=== PATIENT | female | born 2000 | race African-American/Black ===

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

== ENCOUNTER 2020-04-24 13:51 | Emergency (ER) | payer OTHER ==
[2020-04-24 14:09] VITALS: BP 130/99
--- NOTE | 2020-04-24 14:35 | ER Document Report ---
ED Medical Screen (RME) - General Chief Complaint: Vaginal Itching Stated Complaint: VAGINAL SORES Time Seen by Provider: 04/24/20 14:25 Primary Care Provider: DARRICK MARTINEZ MD [Primary Care Provider] - Follow up as needed TRAVEL OUTSIDE OF THE [place] IN LAST 30 DAYS: No - HPI Notes: 04/24/20 14:32 20-year-old female presents emergency room for complaints of pain in her vaginal area, she thinks that she is having a flareup of her genital herpes that she was diagnosed with back in June 2020. Patient's last menstrual cycle was March 19, states she is offered echo shot, states it may take a while for her cycle to normalize, has not taken a test, is sexually active. States she would like to be evaluated for other STIs. Denies any pelvic pain, vaginal discharge, vaginal bleeding. States most of her genital lesions have been the outside of her vagina. Denies any fevers chills, nausea vomiting or diarrhea. I have greeted and performed a rapid initial assessment of this patient. A comprehensive ED assessment and evaluation of the patient, analysis of test results and completion of the medical decision making process will be conducted by additional ED providers. PHYSICAL EXAMINATION: CV: s1, s2 regular LUNGS: No respiratory distress Unable to do pelvic examination in the triage area. Patient does need a bed for a pelvic exam which requires a patient room - Related Data Allergies/Adverse Reactions: No Known Allergies Allergy (Verified 04/24/20 14:20) Home Medications: acyclorvir Past Medical History - Social History Chew tobacco use (# tins/day): No Frequency of alcohol use: None Drug Abuse: None Family history: Reviewed & Not Pertinent - Past Medical History Cardiac Medical History: Denies: Hx Heart Attack, Hx Hypertension Pulmonary Medical History: Denies: Hx Asthma Neurological Medical History: Denies: Hx Cerebrovascular Accident, Hx Seizures Renal/ Medical History: Denies: Hx Peritoneal Dialysis GI Medical History: Denies: Hx Hepatitis, Hx Hiatal Hernia, Hx Ulcer Infectious Medical History: Denies: Hx Hepatitis Past Surgical History: Reports: Hx Breast Surgery - biopsy. Denies: Hx Mastectomy, Hx Open Heart Surgery, Hx Pacemaker - Immunizations Immunizations up to date: Yes Hx Diphtheria, Pertussis, Tetanus Vaccination: Yes Physical Exam - Vital signs Vitals: Temp Pulse Resp BP Pulse Ox 99.1 F 83 20 130/99 H 100 04/24/20 14:07 04/24/20 14:07 04/24/20 14:07 04/24/20 14:07 04/24/20 14:07 Course - Vital Signs Vital signs: Temp Pulse Resp BP Pulse Ox 99.1 F 83 20 130/99 H 100 04/24/20 14:20 04/24/20 14:07 04/24/20 14:07 04/24/20 14:07 04/24/20 14:07 Doctor's Discharge - Discharge Referrals: DARRICK MARTINEZ MD [Primary Care Provider] - Follow up as needed
[2020-04-24 15:15] LABS: APPEARANCE,URINE SLIGHTLY-CLOUDY; BILIRUBIN,URINE NEGATIVE (NEGATIVE); COLOR,URINE YELLOW; GLUCOSE, URINE NEGATIVE (NEGATIVE); KETONES,URINE NEGATIVE (NEGATIVE); LEUKOCYTE ESTERASE,URINE TRACE (NEGATIVE); NITRITE,URINE NEGATIVE (NEGATIVE); PROTEIN,URINE NEGATIVE (NEGATIVE); URINE SPECIFIC GRAVITY 1.019; UROBILINOGEN,URINE NEGATIVE mg/dL (<2.0)
[2020-04-24] MEDS ORDERED: CEFTRIAXONE INJ 250 MG VIAL IM ONE (20:11)
[2020-04-24] MEDS ORDERED: VALACYCLOVIR HCL 500 MG TABLET PO ONE (20:11)
[2020-04-24] MEDS ORDERED: AZITHROMYCIN 250 MG TABLET PO ONE (20:11)
[2020-04-24] MEDS ORDERED: LIDOCAINE 1% INJ (10 MG/ML) 10 ML MDV INJ ONE (20:12)
--- NOTE | 2020-04-24 20:14 | ER Document Report ---
HPI - HPI Patient complains to provider of: Vaginal discharge, herpes flare Time Seen by Provider: 04/24/20 19:25 Onset: Other - 2 days Onset/Duration: Persistent Quality of pain: Burning Pain Level: 3 Context: Patient presents complaining of herpes flareup for the past 2 days with vaginal discharge. Patient does report recent unprotected intercourse. Patient does have a history of previous herpes outbreaks and this is about her fifth flareup. Associated Symptoms: Other - Vaginal discharge. denies: Fever Exacerbated by: Denies Relieved by: Denies Similar symptoms previously: Yes Recently seen / treated by doctor: No - ROS ROS below otherwise negative: Yes Systems Reviewed and Negative: Yes All other systems reviewed and negative - CONSTITUTIONAL Constitutional: DENIES: Fever, Chills - NEURO Neurology: DENIES: Weakness - GASTROINTESTINAL Gastrointestinal: DENIES: Abdominal Pain, Nausea - URINARY Urinary: DENIES: Dysuria - REPRODUCTIVE Reproductive: REPORTS: Abnormal bleeding / discharge. DENIES: : - DERM Skin Color: Normal Skin Problems: None Past Medical History - General Information source: Patient - Social History Smoking Status: Never Smoker Chew tobacco use (# tins/day): No Frequency of alcohol use: None Drug Abuse: None Occupation: None Family History: Reviewed & Not Pertinent Patient has homicidal ideation: No - Medical History Medical History: Negative - Past Medical History Cardiac Medical History: Denies: Hx Heart Attack, Hx Hypertension Pulmonary Medical History: Denies: Hx Asthma Neurological Medical History: Denies: Hx Cerebrovascular Accident, Hx Seizures Renal/ Medical History: Denies: Hx Peritoneal Dialysis GI Medical History: Denies: Hx Hepatitis, Hx Hiatal Hernia, Hx Ulcer Infectious Medical History: Denies: Hx Hepatitis Past Surgical History: Reports: Hx Breast Surgery - biopsy. Denies: Hx Mastectomy, Hx Open Heart Surgery, Hx Pacemaker - Immunizations Immunizations up to date: Yes Hx Diphtheria, Pertussis, Tetanus Vaccination: Yes Vertical Provider Document - CONSTITUTIONAL Agree With Documented VS: Yes Exam Limitations: No Limitations General Appearance: WD/WN, No Apparent Distress - INFECTION CONTROL TRAVEL OUTSIDE OF THE [place] IN LAST 30 DAYS: No - HEENT HEENT: Atraumatic, Normocephalic - NECK Neck: Normal Inspection, Supple. negative: Lymphadenopathy-Left, Ly mphadenopathy-Right - RESPIRATORY Respiratory: Breath Sounds Normal, No Respiratory Distress - CARDIOVASCULAR Cardiovascular: Regular Rate, Regular Rhythm - GI/ABDOMEN Gastrointestinal: Abdomen Soft, Abdomen Non-Tender - REPRODUCTIVE Female Genitalia: Abnormal Inspection - Few scattered ulcerations to vaginal introitus, white vaginal discharge, no cervical motion tenderness. negative: Adnexal Pain-Right, Adnexal Pain-Left - BACK Back: Normal Inspection. negative: CVA Tenderness-Right, CVA Tenderness-Left - MUSCULOSKELETAL/EXTREMETIES Musculoskeletal/Extremeties: MAEW - NEURO Level of Consciousness: Awake, Alert, Appropriate Motor/Sensory: No Motor Deficit - DERM Integumentary: Warm, Dry, Rash - See above Course - Re-evaluation Re-evalutation: 04/24/20 20:39 Patient does have budding yeast as well as findings worrisome for bacterial vaginosis. Cultures are pending at this time. Will treat for herpes flare as well. Safe sex practices discussed. - Vital Signs Vital signs: Temp Pulse Resp BP Pulse Ox 99.1 F 83 20 130/99 H 100 04/24/20 14:20 04/24/20 14:07 04/24/20 14:07 04/24/20 14:07 04/24/20 14:07 - Laboratory Laboratory results interpreted by me: 04/24/20 14:45 Urine Blood SMALL H Ur Leukocyte Esterase TRACE H Discharge - Discharge Clinical Impression: Vaginal discharge, Vaginal yeast infection, Bacterial vaginosis Genital herpes Qualifiers: Herpes simplex infection site: unspecified Qualified Code(s): A60.00 - Herpesviral infection of urogenital system, unspecified Condition: Stable Disposition: HOME, SELF-CARE Instructions: Azithromycin ([facility]), Genital Herpes ([facility]), Rocephin ([facility]), Vaginal Yeast Infection ([facility]), Vaginosis, Bacterial ([facility]) Additional Instructions: Return immediately for any new or worsening symptoms Followup with your primary care provider, call tomorrow to make a followup appointment Cultures are pending, we will call if you need any different treatment Prescriptions: Fluconazole [Diflucan] 150 mg PO ONCE #1 tablet Metronidazole [Flagyl 500 mg Tablet] 500 mg PO BID #14 tablet Valacyclovir HCl [Valtrex 500 mg Tablet] 1,000 mg PO DAILY #14 tablet Referrals: DARRICK MARTINEZ MD [Primary Care Provider] - Follow up as needed
[2020-04-24 20:25] LABS: T.VAGINALIS (WET MOUNT) NO TRICHOMONAS SEEN
[2020-04-24 20:26] LABS: BACTERIA (WET MOUNT) 4+ BACTERIA SEEN; EPITHELIALS (WET MOUNT) 3+ EPITHELIALS SEEN; WBCS (WET MOUNT) FEW WBCS SEEN; YEAST (WET MOUNT) BUDDING YEAST SEEN
[2020-04-24 22:06] LABS: CHLAM PCR NOT DETECTED (NOT DETECT)
== END 2020-04-24 21:14 | disposition home or self-care (01) ==
LOC: ER 13:51
DX: A60.00 Herpesviral infection of urogenital system, unspecified (principal); B37.3 Candidiasis of vulva and vagina; N76.0 Acute vaginitis; B96.89 Other specified bacterial agents as the cause of diseases classified elsewhere
CPT/HCPCS: 99283; 96372; 87086; 87210; 81025; 81001; 87491; 87591; J0696